=== PATIENT | female | born 1970 | race Caucasian/White ===

== ENCOUNTER 2020-11-29 13:31 | Emergency (ER) | payer BC ==
[~2020-11-29] VITALS: Ht 167.6 cm; Wt 54.0 kg
--- OUTSIDE RECORDS SUMMARY | 2020-11-29 13:34 | XMS ---
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 Michael has no Care Guidelines for this patient. Mae VISIT COUNT (12 MO.) 1 [facility] TOTAL 1 NOTE: Visits indicate total known visits. ED/UCC VISIT TRACKING (12 MO.) 11/29/2020 13:33 [facility] [place] TYPE: Emergency COMPLAINT: - POSS UTI INPATIENT VISIT TRACKING (12 MO.) No inpatient visits to display in this time frame [id number]
[2020-11-29] MEDS ORDERED: DULOXETINE HCL30 MG PO (13:58)
[2020-11-29] MEDS ORDERED: DIVALPROEX SOD500 MG PO (13:58)
[2020-11-29] MEDS ORDERED: HYDROCODONE-IB1 EACH PO (13:59)
[2020-11-29] MEDS ORDERED: DULOXETINE HCL60 MG PO (13:59)
[2020-11-29] MEDS ORDERED: FENTANYL1 EAC4 TD (13:59)
[2020-11-29] MEDS ORDERED: NITROFURANTOIN100 M1 PO (14:00)
[2020-11-29] MEDS ORDERED: VYVANSE50 MG PO (14:00)
[2020-11-29] MEDS ORDERED: CEPHALEXIN500 M1 PO (15:28)
== END 2020-11-29 15:42 | disposition home or self-care (01) ==
LOC: ED 13:31
DX: N39.0 Urinary tract infection, site not specified (principal); Z88.8 Allergy status to other drugs, medicaments and biological substances; Z79.899 Other long term (current) drug therapy; Z79.891 Long term (current) use of opiate analgesic
CPT/HCPCS: 81001; 99283

== ENCOUNTER 2020-12-15 15:55 | Emergency (ER) | payer BC ==
[~2020-12-15] VITALS: Ht 167.6 cm; Wt 54.0 kg
[~2020-12-15 15:55] MED LIST: CEPHALEXIN500 M1 PO; DIVALPROEX SOD500 MG PO; DULOXETINE HCL30 MG PO; DULOXETINE HCL60 MG PO; FENTANYL1 EAC4 TD; HYDROCODONE-IB1 EACH PO; NITROFURANTOIN100 M1 PO; VYVANSE50 MG PO
--- OUTSIDE RECORDS SUMMARY | 2020-12-15 15:58 | XMS ---
PreManage Notification: IBIS PATEL [employer] Events No recent Security Events currently on file CRITERIA MET - [facility] - 2 Visits in 30 Days - [facility] NANNETTE Leblanc Nurse Practitioner 12/04/2020-[facility] IVORY PHONE: [phone] Michael has no Care Guidelines for this patient. Mae VISIT COUNT (12 MO.) 2 [facility] TOTAL 2 NOTE: Visits indicate total known visits. ED/UCC VISIT TRACKING (12 MO.) 12/15/2020 15:56 [facility] OR TYPE: Emergency COMPLAINT: - POSS KIDNEY INFECTION 11/29/2020 13:33 [facility] TYPE: Emergency COMPLAINT: - POSS UTI DIAGNOSES: - Dysuria - Allergy status to other drugs, medicaments and biological substances - Other ferry terminal agent (current) drug therapy - intermodal truck driver (current) use of opiate analgesic - Urinary tract infection, site not specified INPATIENT VISIT TRACKING (12 MO.) No inpatient visits to display in this time frame [email or web address]
[2020-12-15] MEDS ORDERED: PRILOSEC OTC20 MG PO (18:27)
== END 2020-12-15 18:36 | disposition home or self-care (01) ==
LOC: ED 15:55
DX: K21.9 Gastro-esophageal reflux disease without esophagitis (principal); Z87.891 Personal history of nicotine dependence; Z88.8 Allergy status to other drugs, medicaments and biological substances; Z79.899 Other long term (current) drug therapy; Z79.891 Long term (current) use of opiate analgesic
CPT/HCPCS: 74176; 80053; 81001; 83690; 85025; 96374; 99284-25; J1885; J7030